=== PATIENT | female | born 1930 | race Caucasian/White ===

== ENCOUNTER 2016-08-08 15:01 | Inpatient (IN) | payer OTHER, MEDICARE ==
--- NOTE | 2016-08-08 15:59 | PDOC ---
History of Present Illness - General History Source: Patient Exam Limitations: No Limitations - History of Present Illness Initial Comments: 08/08/16 16:07 The patient is an 86-year-old female, with a significant past medical history of htn and hypercholesterolemia, who presents to the ED s/p mechanical fall today. The patient states that she was making tea and turned around and slipped. She denies any LOC or head trauma. The patient is now experiencing bilateral thigh pain. Pt had a previous fall about 3-4 months ago and was admitted for a week and sent for physical therapy. The patient denies having any other symptoms. <Liberty Pierce - Last Filed: 08/08/16 17:20> - General History Source: Patient, Family, Old Records Exam Limitations: No Limitations <Soila Domingo - Last Filed: 08/08/16 19:08> - General Chief Complaint: Injury Stated Complaint: FALL Time Seen by Provider: 08/08/16 15:24 Past History <Liberty Pierce - Last Filed: 08/08/16 17:20> - Past Medical History Anemia: No Asthma: No Cancer: No Cardiac Disorders: No CVA: No COPD: No CHF: No Dementia: No Diabetes: No GI Disorders: No Disorders: No HTN: Yes Hypercholesterolemia: Yes Liver Disease: No Seizures: No Thyroid Disease: No - Surgical History Abdominal Surgery: Yes (Hernia Repair) Appendectomy: No Cardiac Surgery: No Cholecystectomy: Yes Lung Surgery: No Neurologic Surgery: No Orthopedic Surgery: No - Psycho/Social/Smoking Cessation Hx Anxiety: No Suicidal Ideation: No Smoking Status: No Smoking History: Unknown if ever smoked Have you smoked in the past 12 months: No Number of Cigarettes Smoked Daily: 0 Hx Alcohol Use: No Drug/Substance Use Hx: No Substance Use Type: None Hx Substance Use Treatment: No <Soila Domingo - Last Filed: 08/08/16 19:08> - Past Medical History Allergies/Adverse Reactions: Allergies Allergy/AdvReac Type Severity Reaction Status Date / Time irbesartan [From Avapro] Allergy Intermediate Swelling Verified 08/08/16 15:18 shellfish derived Allergy Mild Swelling Verified 08/08/16 15:18 Home Medications: Ambulatory Orders Amlodipine Besylate 5 mg PO DAILY #30 tablet 05/31/16 Aspirin [ASA -] 81 mg PO DAILY #30 tab.chew 05/31/16 Folic Acid - 1 mg PO DAILY #0 05/31/16 Levofloxacin [Levaquin -] 250 mg PO DAILY #3 tablet 05/31/16 Valsartan [Diovan] 80 mg PO DAILY #30 tablet 05/31/16 Review of Systems - Review of Systems Able to Perform ROS?: Yes Comments:: 08/08/16 16:07 CONSTITUTIONAL: Absent: fever, no chills, no fatigue EYES: Absent: visual changes ENT: Absent: ear pain, no sore throat CARDIOVASCULAR: Absent: chest pain, no palpitations RESPIRATORY: Absent: cough, no SOB GI: Absent: abdominal pain, no nausea, no vomiting, no constipation, no diarrhea GENITOURINARY: Absent: dysuria, no frequency, no hematuria MUSKULOSKELETAL: Absent: back pain, no arthralgia. (+)bilateral thigh pain. Absent: rash NEURO: Absent: headache <Liberty Pierce - Last Filed: 08/08/16 17:20> *Physical Exam - Vital Signs Last Vital Signs Temp Pulse Resp BP Pulse Ox 98.6 F 68 20 130/70 98 08/08/16 15:18 08/08/16 15:18 08/08/16 15:18 08/08/16 15:18 08/08/16 15:18 - Physical Exam Comments: 08/08/16 16:09 GENERAL: Well-appearing, well-nourished. No apparent distress. HEENT: Normocephalic, atraumatic. PERRL, EOM intact. CARDIOVASCULAR: Normal S1, S2. Regular rate and rhythm. PULMONARY: Clear to auscultation bilaterally. ABDOMEN: Soft, non-distended, non-tender. EXTREMITIES: (+) Left leg looks externally rotated and shortened with swelling of the entire extremity. Limited range of motion of the left leg at the hip. SKIN: Warm, dry. No rash NEUROLOGICAL: No focal neurological deficits. 2+ distal pulses, sensation is intact. <Liberty Pierce - Last Filed: 08/08/16 17:20> - Vital Signs Last Vital Signs Temp Pulse Resp BP Pulse Ox 98.6 F 68 20 130/70 98 08/08/16 15:18 08/08/16 15:18 08/08/16 15:18 08/08/16 15:18 08/08/16 15:18 <Soila Domingo - Last Filed: 08/08/16 19:08> ED Treatment Course - LABORATORY CBC & Chemistry Diagram: 08/08/16 16:15 08/08/16 16:15 <Liberty Pierce - Last Filed: 08/08/16 17:20> - LABORATORY CBC & Chemistry Diagram: 08/08/16 16:15 08/08/16 16:15 <Soila Domingo - Last Filed: 08/08/16 19:08> Medical Decision Making - Medical Decision Making 08/08/16 15:57 86-year-old female with history of hypertension who presents to the emergency department with left hip pain status post mechanical fall at home today. Differential diagnosis includes but is not limited to: Left hip fracture, contusion, pelvic fracture. Plan: 1. Plain films of pelvis and hip and femur 2. Preop labs 3. Pain management 4. Orthopedics consult and admission 5. Observe and reevaluate <Soila Domingo - Last Filed: 08/08/16 19:08> *DC/Admit/Observation/Transfer <Liberty Pierce - Last Filed: 08/08/16 17:20> - Discharge Dispostion Admit: Yes - Attestations Physician Attestion: 08/08/16 15:57 I, Dr. Soila Domingo, attest that the scribes documentation that appears above has been prepared under my direction and personally reviewed by me in its entirety. I confirmed that the note above accurately reflects all work, treatment, procedures, and medical decision-making performed by me. <Soila Domingo - Last Filed: 08/08/16 19:08> Diagnosis at time of Disposition: Hip fracture, left - Discharge Dispostion Condition at time of disposition: Stable - Referrals Referrals: Ivelisse Cr [Primary Care Provider] -
[2016-08-08] MEDS ORDERED: morphine CARPU-JECT 4 MG/1 ML DISP.SYRIN IVPUSH ONE ×2 (16:00→18:40)
[2016-08-08] MEDS ORDERED: morphine CARPU-JECT 2 MG/1 ML DISP.SYRIN ONE ×2 (16:09→18:45)
[2016-08-08 16:25] LABS: BASOPHIL 0.6 % (0-2.0); EOSINOPHIL 1.7 % (0-4.5); MCH 30.8 pg (25.7-33.7); MCHC 32.3 g/dl (32.0-36.0); MEAN CELL VOLUME 95.4 fl (80-96); MEAN PLT VOLUME 7.4 fl (7.5-11.1); NEUTROPHILS 73.8 % (42.8-82.8); PLATELET COUNT 299 K/MM3 (134-434); RDW 13.6 % (11.6-15.6); WHITE BLOOD COUNT 8.7 K/mm3 (4.0-10.0)
[2016-08-08 16:46] LABS: INR 1.02 (0.82-1.09); PROTHROMBIN TIME (PATIENT) 11.2 SEC (9.98-11.88)
[2016-08-08 16:49] LABS: ACTIVATED PTT 25.9 SECONDS (26.9-34.4); ALBUMIN 3.1 g/dl (3.4-5.0); ANION GAP 9 (8-16); BILIRUBIN,TOTAL 0.2 mg/dL (0.2-1.0); CALCIUM 8.8 mg/dL (8.5-10.1); CO2 22 mmol/L (21-32); CREATININE 0.9 mg/dL (0.55-1.02); GLUCOSE,RANDOM 104 mg/dL (74-106); SGOT/AST 21 U/L (15-37); SGPT/ALT 14 U/L (12-78); TOT PROT 5.7 g/dl (6.4-8.2)
[2016-08-08 16:51] LABS: ALK PHOS 54 U/L (45-117); TROPONIN I < 0.02 ng/ml (0.00-0.05)
[2016-08-08 16:53] LABS: URINE APPEARANCE CLEAR; URINE BILIRUBIN NEGATIVE (NEGATIVE); URINE COLOR STRAW; URINE GLUCOSE (UA) NEGATIVE (NEGATIVE); URINE KETONE NEGATIVE (NEGATIVE); URINE LEUK ESTERASE NEGATIVE (NEGATIVE); URINE NITRITE NEGATIVE (NEGATIVE); URINE PROTEIN NEGATIVE (NEGATIVE); URINE UROBILINOGEN NEGATIVE E.U./dl (0.2-1.0)
[2016-08-08 17:08] LABS: URINE BLOOD 2+ (NEGATIVE)
[2016-08-08] MEDS ORDERED: morphine CARPU-JECT 2 MG/1 ML DISP.SYRIN IVPUSH ONE (18:41)
[2016-08-08] MEDS ORDERED: SODIUM CHLORIDE 1,000 ML IV SCH (20:30)
[2016-08-08] MEDS ORDERED: morphine CARPU-JECT 2 MG/1 ML DISP.SYRIN IVPUSH PRN (20:31)
[2016-08-08] MEDS ORDERED: DEXTROSE 5%-NORMAL SALINE 1,000 ML IV SCH (21:00)
--- NOTE | 2016-08-08 21:18 | MSN ---
Admitting History and Physical - Admission Chief Complaint: Left thigh pain after a fall History of Present Illness: Patient with history of HTN, and HLD presented to the ED after a fall in her house. She slipped while cooking and fell on her back and hands, she was able to get a neighbor to come and help her get up and call the ambulance. She did not have any pain after her fall but upon arrival at the ED, she began to feel some pain in her left hip. She did not lose consciousness during the fall, nor did she hit her head. She denies any pain other than her hip, she has no CP, fever, headache, NVD, no dysuria, constp., or SOB. She never used tobacco or alcohol. History Source: Patient Limitations to Obtaining History: Poor Historian - Past Medical History Cardiovascular: Yes: HTN, Hyperlipdemia - Past Surgical History Past Surgical History: Yes: Cholecystectomy, Tonsillectomy - Smoking History Smoking history: Unknown if ever smoked Have you smoked in the past 12 months: No Aproximately how many cigarettes per day: 0 - Alcohol/Substance Use Hx Alcohol Use: No - Social History Usual Living Arrangement: Yes: Alone ADL: Independent Occupation: retired workers compensation legal secretary Other Social History: Father passed from lung cancer at 64 and mother passed from old age at 94 Home Medications - Allergies Allergies/Adverse Reactions: Allergies Allergy/AdvReac Type Severity Reaction Status Date / Time irbesartan [From Avapro] Allergy Intermediate Swelling Verified 08/08/16 15:18 shellfish derived Allergy Mild Swelling Verified 08/08/16 15:18 - Home Medications Home Medications: Ambulatory Orders Amlodipine Besylate 5 mg PO DAILY #30 tablet 05/31/16 Aspirin [ASA -] 81 mg PO DAILY #30 tab.chew 05/31/16 Folic Acid - 1 mg PO DAILY #0 05/31/16 Levofloxacin [Levaquin -] 250 mg PO DAILY #3 tablet 05/31/16 Valsartan [Diovan] 80 mg PO DAILY #30 tablet 05/31/16 Family Disease History - Family Disease History Family Disease History: Heart Disease: Mother, CA: Father Review of Systems - Review of Systems Constitutional: reports: No Symptoms. denies: Chills, Fever, Loss of Appetite, Malaise, Night Sweats Eyes: reports: No Symptoms. denies: Blurred Vision HENT: reports: No Symptoms Neck: reports: No Symptoms Cardiovascular: reports: No Symptoms. denies: Chest Pain, Shortness of Breath Respiratory: reports: No Symptoms Gastrointestinal: reports: No Symptoms Genitourinary: reports: No Symptoms. denies: Burning, Dysuria, Flank Pain Musculoskeletal: reports: Decreased ROM (lower left hip), Extremity Pain (lower left hip), Joint Pain (lower left hip), Joint Swelling (lower left hip), Other ( Hip Pain) Neurological: reports: No Symptoms. denies: Change in LOC, Change in Speech, Confusion, Dizziness Endocrine: reports: No Symptoms. denies: Excessive Sweating, Intolerance to Cold, Intolerance to Heat, Unexplained Weight Gain, Unexplained Weight Loss Hematology/Lymphatic: reports: No Symptoms. denies: Easily Bruised Psychiatric: reports: No Symptoms Pain Intensity: 10 (pain is constant) Physical Examination Vital Signs: Vital Signs Temperature 98.6 F 08/08/16 15:18 Pulse Rate 68 08/08/16 15:18 Respiratory Rate 20 08/08/16 15:18 Blood Pressure 130/70 08/08/16 15:18 O2 Sat by Pulse Oximetry (%) 98 08/08/16 15:18 Constitutional: Yes: Well Nourished, No Distress, Calm, Moderate Distress. No: Anxious, Ashen, Cachectic Eyes: Yes: WNL, Conjunctiva Clear, EOM Intact, PERRL. No: Cataracts, Diplopia, Sclera Icterus, Tearing HENT: Yes: WNL, Atraumatic, Normocephalic. No: Drooling, Epistaxis, Hoarseness , Nasal Congestion Neck: Yes: WNL, Supple, Trachea Midline Cardiovascular: Yes: WNL, Regular Rate and Rhythm, S1, S2. No: JVD, Gallop, Murmur, Rub, S4 Respiratory: Yes: WNL, Regular, CTA Bilaterally. No: Mechanically Ventilated, On BiPap, On Nasal O2, On Venti-Mask, Orthopnea, Poor Air Entry, Rales, Rhonchi , SOB, SOB on Exertion Gastrointestinal: Yes: WNL, Normal Bowel Sounds, Soft. No: Abdomen, Obese, Ascites, Distention, Hematemesis, Hemorrhoids, Hepatomegaly, Hyperactive Bowel Sounds, Hypoactive Bowel Sounds, Melena Renal/: Yes: WNL Extremities: Yes: Shortened (Left lower ext., externally rotated and pain) Edema: No Edema: LLE: Trace (nonpitting) Peripheral Pulses WNL: Yes Peripheral Pulses: Left Radial: 2+, Right Radial: 2+, Left Doralis Pedis: 2+, Right Dorsalis Pedis: 2+ Neurological: Yes: WNL, Alert, Oriented ...Motor Strength: LLE (Weakness) Psychiatric: Yes: WNL, Alert, Oriented Assessment/Plan 86 YO F w/ hx of HTn and HLD who preseted to the ED after a fall and left thigh pain. based on pelvis xray patient is diagnosed with a left femoral fracture at the femoral neck femoral fracture/hip pain -Xray of pelvis-Hip frac visualized waiting for radiology report -CT pelvis -1mg morphine q6h HTN -Cont. medications Anemia/elctrolytes -Hg-9.0 hct 27.8 -cross and type -CBC q8h -Fluids D5w NS 75ml/hr -BMP at 6am -monitor Mg/P/K/Trop Dvt Px -Heparin Subq q8h GI prx -Protonix drip Surg. Clearance -Patient cleared for surgery with moderate to high risk due to HTN and HLD. Patient currently has a slight anemia that is being monitored.
--- NOTE | 2016-08-08 21:20 | HP ---
CHIEF COMPLAINT: Hip pain PCP: HISTORY OF PRESENT ILLNESS: The pt is a 86 year old female with a significant PMH of HTN, HDL, s/p fall in May 2016, presents with the pain in her left hip. The pt slipped over when preparing tea at home. She fell on her back with extended arms. Afterwards she called a neighbour for help. She denies LOC, feeling dizzy, lightheaded before or after the accident. She denies chest pain, SOB, cough, dysuria, urgency, frequency, N/V, diarrhea, constipation, fever, chills. ER course was notable for: (1)Hip, femur X ray (2)Chest X ray (3)Troponins neg, CK-MG elevated PAST MEDICAL HISTORY: HTN, HDL, s/p fall in May 2016 PAST SURGICAL HISTORY: Tonsillectomy Cholecystectomy in 2013 Social History: Smoking:No Alcohol:No Drugs: No Family History: Father: lung cancer Mother: bc of old age Allergies irbesartan [From Avapro] Allergy (Intermediate, Verified 08/08/16 15:18) Swelling shellfish derived Allergy (Mild, Verified 08/08/16 15:18) Swelling HOME MEDICATIONS: Medication Instructions Recorded Amlodipine Besylate 5 mg PO DAILY #30 tablet 05/31/16 Aspirin [ASA -] 81 mg PO DAILY #30 tab.chew 05/31/16 Folic Acid - 1 mg PO DAILY #0 05/31/16 Levofloxacin [Levaquin -] 250 mg PO DAILY #3 tablet 05/31/16 Valsartan [Diovan] 80 mg PO DAILY #30 tablet 05/31/16 REVIEW OF SYSTEMS CONSTITUTIONAL: Absent: fever, chills, diaphoresis, generalized weakness, malaise, loss of appetite, weight change HEENT: Absent: rhinorrhea, nasal congestion, throat pain, throat swelling, difficulty swallowing, mouth swelling, ear pain, eye pain, visual changes CARDIOVASCULAR: Absent: chest pain, syncope, palpitations, irregular heart rate, lightheadedness , peripheral edema RESPIRATORY: Absent: cough, shortness of breath, dyspnea with exertion, orthopnea, wheezing, stridor, hemoptysis GASTROINTESTINAL: Absent: abdominal pain, abdominal distension, nausea, vomiting, diarrhea, constipation, melena, hematochezia GENITOURINARY: Absent: dysuria, frequency, urgency, hesitancy, hematuria, flank pain, genital pain MUSCULOSKELETAL: left hip pain, left leg swelling Absent: myalgia,back pain, neck pain SKIN: Absent: rash, itching, pallor HEMATOLOGIC/IMMUNOLOGIC: Absent: easy bleeding, easy bruising, lymphadenopathy, frequent infections ENDOCRINE: Absent: unexplained weight gain, unexplained weight loss, heat intolerance, cold intolerance NEUROLOGIC: Absent: headache, focal weakness or paresthesias, dizziness, unsteady gait, seizure, mental status changes, bladder or bowel incontinence PSYCHIATRIC: Absent: anxiety, depression, suicidal or homicidal ideation, hallucinations. PHYSICAL EXAMINATION GENERAL: Awake, alert, and fully oriented, in moderate distress, cachectic. HEAD: Normal with no signs of trauma. EYES: Pupils equal, round and reactive to light, extraocular movements intact, sclera anicteric, conjunctiva clear. No lid lag. EARS, NOSE, THROAT: Ears normal, nares patent, oropharynx clear without exudates. Moist mucous membranes. NECK: Normal range of motion, supple without lymphadenopathy, JVD, or masses. LUNGS: Breath sounds equal, clear to auscultation bilaterally. No wheezes, and no crackles. No accessory muscle use. HEART: Regular rate and rhythm, normal S1 and S2 without murmur, rub or gallop. ABDOMEN: Soft, nontender, not distended, normoactive bowel sounds, no guarding, no rebound, no masses. No hepatomegaly or splenomegaly. MUSCULOSKELETAL: Left LE externally rotated, swollen, no hematoma. Tenderness to palpation over left hip. RLE nl ROM, no tenderness. UPPER EXTREMITIES: 2+ pulses, warm, well-perfused. No cyanosis. No clubbing. Cap refill <2 seconds. No peripheral edema. LOWER EXTREMITIES: 2+ pulses, warm, well-perfused. No calf tenderness. Swelling in LLE. NEUROLOGICAL: Cranial nerves II-XII intact. Normal speech. Gait not observed. PSYCHIATRIC: Cooperative. Good eye contact. Appropriate mood and affect. SKIN: Warm, dry, normal turgor, no rashes or lesions noted. ASSESSMENT/PLAN: The pt is a 86 year old female with a significant PMH of HTN, HDL, s/p fall in May 2016, presents with the pain in her left hip. The pt slipped over when preparing tea at home. She fell on her back with extended arms. S/P mechanical fall: possible surgery -Pain control Morphine 1 mg Q6H PRN -orthopedic Surgery consultation ordered -NPO -monitor vital signs -Type and Screen -CBC and BMP in AM, check phosphorus, magnesium, potassium -troponins in AM -Oxygen Supplementation NC 2 L -NS at rate 75 ml/hr -D5NS at rate 75 ml/hr -last ECHO was done in May: normal LV, tricuspid regurgitation -Pepsid Dehydration: -BUN 45, Cr 0.9, -cont IVF Anemia: -Hgb 9.0, previously 9.8 in May -f/u CBC -Iron studies in AM -get consent for possible blood transfusion Elevated CK-MB -monitor -cont.IVF DVT Prophylaxis: -moderate risk -Heparin 5000 u SQ Q8H F/E/N NS, D5NS/No changes/NPO Admission to med surg Problem List - Problem (1) Hip fracture, left Code(s): S72.002A - FRACTURE OF UNSP PART OF NECK OF LEFT FEMUR, INIT (2) Accident due to mechanical fall without injury Code(s): W19.XXXA - UNSPECIFIED FALL, INITIAL ENCOUNTER Qualifiers: Encounter type: initial encounter Qualified Code(s): W19.XXXA - Unspecified fall, initial encounter Visit type - Emergency Visit Emergency Visit: Yes ED Registration Date: 08/08/16 Care time: The patient presented to the Emergency Department on the above date and was hospitalized for further evaluation of their emergent condition. - New Patient This patient is new to me today: Yes Date on this admission: 08/08/16 - Critical Care Critical Care patient: No
[2016-08-08] MEDS ORDERED: HEPARIN NA (PORCINE) 5,000 UNITS/ML 1ML VIAL SQ SCH (22:00)
--- NOTE | 2016-08-08 22:40 | PN ---
<Bee Guillen - Last Filed: 08/08/16 22:55> Teaching Attending Note ATTENDING PHYSICIAN STATEMENT I saw and evaluated the patient. I reviewed the resident's note and discussed the case with the resident. I agree with the resident's findings and plan as documented. SUBJECTIVE: The patient is a 86 yo female with a PMHx HTN, HLD who presents s/p fall with L sided hip pain. The patient has previous fall in May 2016. The patient now presents with a second episode of fall. She slipped over when making tea at home. She denies any LOC, head trauma, lightheadedness, chest pain, SOB, nausea , vomiting, headache, fever, or abdominal pain. OBJECTIVE: Physical Last Vital Signs Temp Pulse Resp BP Pulse Ox 98.6 F 68 20 130/70 98 08/08/16 15:18 08/08/16 15:18 08/08/16 15:18 08/08/16 15:18 08/08/16 15:18 GENERAL: Awake, alert, and fully oriented, in no acute distress HEENT: Atraumatic. PERRLA, EOMI. Moist mucosa. No JVD LUNGS: No distress, speaks full sentences, clear to auscultation bilaterally HEART: Regular rate and rhythm, normal S1 and S2, no murmurs, rubs or gallops, peripheral pulses normal and equal bilaterally. ABDOMEN: Soft, nontender, normoactive bowel sounds. No guarding, no rebound. No masses EXTREMITIES: +Bilteral pitting edema. + LLE shortened and rotated. +Visible swelling over thhe hip area with tenderness to palpation. + Pulses are present bilaterally. No clubbing or cyanosis. NEUROLOGICAL: Cranial nerves II through XII grossly intact. Normal speech, no focal sensorimotor deficits SKIN: Warm, Dry, normal turgor, no rashes or lesions noted. CBCD WBC 8.7 K/mm3 (4.0-10.0) 08/08/16 16:15 RBC 2.92 M/mm3 (3.60-5.2) L 08/08/16 16:15 Hgb 9.0 GM/dL (10.7-15.3) L 08/08/16 16:15 Hct 27.8 % (32.4-45.2) L 08/08/16 16:15 MCV 95.4 fl (80-96) 08/08/16 16:15 MCHC 32.3 g/dl (32.0-36.0) 08/08/16 16:15 RDW 13.6 % (11.6-15.6) 08/08/16 16:15 Plt Count 299 K/MM3 (134-434) D 08/08/16 16:15 MPV 7.4 fl (7.5-11.1) L 08/08/16 16:15 CMP Sodium 142 mmol/L (136-145) 08/08/16 16:15 Potassium 4.7 mmol/L (3.5-5.1) 08/08/16 16:15 Chloride 111 mmol/L (98-107) H 08/08/16 16:15 Carbon Dioxide 22 mmol/L (21-32) 08/08/16 16:15 Anion Gap 9 (8-16) 08/08/16 16:15 BUN 45 mg/dL (7-18) H D 08/08/16 16:15 Creatinine 0.9 mg/dL (0.55-1.02) D 08/08/16 16:15 Creat Clearance w eGFR 59.51 (>60) 08/08/16 16:15 Calcium 8.8 mg/dL (8.5-10.1) 08/08/16 16:15 Total Bilirubin 0.2 mg/dL (0.2-1.0) D 08/08/16 16:15 AST 21 U/L (15-37) D 08/08/16 16:15 ALT 14 U/L (12-78) D 08/08/16 16:15 Alkaline Phosphatase 54 U/L (45-117) D 08/08/16 16:15 Total Protein 5.7 g/dl (6.4-8.2) L 08/08/16 16:15 Albumin 3.1 g/dl (3.4-5.0) L 08/08/16 16:15 IMAGING: Official report to follow ASSESSMENT AND PLAN: Mechanical Fall -- L Femur intertrochanteric fracture -- Admit to Medical floor - Pain control -- NPO -- Dr. Leiva (ortho) consulted --Plan for surgery tomorrow -- Hold Heparin SQ dose as per Dr. Leiva -- Type and Cross -- EKG shows NSR -- Echo in May 2016 shows moderate tricuspid regurgitation, Normal LV and RV function -- CBC Q8 -- Lipid panel -- IVF while NPO -- No evidence of RABDO, CPK is normal Patient has hx of HTN, HLD, moderate tricuspid regurgitation as present patient is not complaining of active chest pain, SOB. EKG is NSR with negative troponin. Will clear patient for surgery with moderate- high risk. Anemia -- baseline hemoglobin is 9.8 in May 2016 -- Not bleeding actively -- Will repeat CBC in the AM -- Transfuse PRBCs as needed -- GI/DVT ppx Documentation prepared by Bee Guillen, acting as medical imaging tech for Ttaiana Atkins MD <Wilbert Simpson - Last Filed: 08/09/16 01:24> Teaching Attending Note Name of Resident: Claudine Lee ATTENDING PHYSICIAN STATEMENT I saw and evaluated the patient. I reviewed the resident's note and discussed the case with the resident. I agree with the resident's findings and plan as documented. SUBJECTIVE: OBJECTIVE: ASSESSMENT AND PLAN:
[2016-08-09 00:41] VITALS: BMI 21.7
[2016-08-09] MEDS ORDERED: DEXTROSE 5%-NORMAL SALINE 1,000 ML IV SCH ×2 (08:30→16:55)
[2016-08-09 08:31] LABS: MCH 32.1 pg (25.7-33.7); MCHC 33.4 g/dl (32.0-36.0); MEAN PLT VOLUME 7.6 fl (7.5-11.1); PLATELET COUNT 267 K/MM3 (134-434); RDW 13.5 % (11.6-15.6)
[2016-08-09 08:40] LABS: INR 1.08 (0.82-1.09); PROTHROMBIN TIME (PATIENT) 11.9 SEC (9.98-11.88)
[2016-08-09 09:02] LABS: CALCIUM 8.6 mg/dL (8.5-10.1)
--- NOTE | 2016-08-09 09:22 | CONSULT ---
Consult - text type - Consultation Consultation Note: FULL CONSULT DICTATED IMP: LEFT IT HIP FX PLAN: --> OR TOMORROW IF MEDICALLY CLEARED
--- NOTE | 2016-08-09 09:51 | CONS ---
DATE OF CONSULTATION: 08/09/2016 DATE OF DICTATION: 08/09/2016 Orthopedic consultation at [facility]. The patient is an 86-year-old female, status post fall injuring her left hip. The patient is unable to ambulate and complaining of a great deal of pain. On physical exam, the patient has a great deal of pain with any range of motion of the left hip. Hip is held in flexion and external rotation with full range of motion of the ankles and toes. However, is neurovascularly intact. X-rays show a left basicervical/intertrochanteric hip fracture of the left hip. IMPRESSION: Fracture, as described. PLAN: Risks, benefits and alternatives discussed with the patient. Patient will need consent from a family member, as the patient is slightly confused. Patient will need optimization of a medical doctor with the patient for operative intervention tomorrow for a left gamma nailing. WALTER RUSH M.D. MELVA/[id number]
[2016-08-09] MEDS ORDERED: ASPIRIN 81 MG CHEWABLE TABLETS PO SCH (10:00)
[2016-08-09] MEDS ORDERED: VALSARTAN 80 MG TABLET (UD) PO SCH (10:00)
[2016-08-09] MEDS ORDERED: amLODIPine BESYLATE 5 MG TABLET (FP) PO SCH (10:00)
[2016-08-09 10:07] LABS: BASOPHIL 0.3 % (0-2.0); EOSINOPHIL 0.2 % (0-4.5); NEUTROPHILS 79.9 % (42.8-82.8)
[2016-08-09] MEDS: PANTOPRAZOLE SODIUM 100 ML IVPB SCH (10:50)
[2016-08-09] MEDS: DOCUSATE SODIUM 100 MG CAPSULE (FP) PO SCH (10:56)
[2016-08-09] MEDS: FOLIC ACID 1 MG TABLET (FP) PO SCH (10:56)
[2016-08-09 13:54] LABS: BASOPHIL 0.2 % (0-2.0); EOSINOPHIL 0.1 % (0-4.5); MCH 31.6 pg (25.7-33.7); MCHC 32.8 g/dl (32.0-36.0); MEAN CELL VOLUME 96.2 fl (80-96); MEAN PLT VOLUME 7.1 fl (7.5-11.1); NEUTROPHILS 80.4 % (42.8-82.8); PLATELET COUNT 237 K/MM3 (134-434); RDW 13.4 % (11.6-15.6); WHITE BLOOD COUNT 11.1 K/mm3 (4.0-10.0)
[2016-08-09] MEDS ORDERED: ACETAMINOPHEN 325 MG TABLET (FP) PO ONE (14:08)
--- NOTE | 2016-08-09 15:49 | PN ---
Physical Exam: SUBJECTIVE: Patient seen and examined, patient states that she usually walks with walker but yesterday she was in kitchen and slipped. states that she has pain in left leg. denies hitting her head. denies chest pain, sob, nausea, vomiting, light headedness OBJECTIVE: Vital Signs Period Temp Pulse Resp BP Sys/Weiss Pulse Ox Last 24 Hr 98 F-98.9 F 69-79 18-19 103-135/43-58 98 GENERAL: The patient is awake, alert, and fully oriented, in no acute distress. HEAD: Normal with no signs of trauma. EYES: PERRL, extraocular movements intact, sclera anicteric, conjunctiva clear. ENT: Ears normal, nares patent, oropharynx clear without exudates, LUNGS: Breath sounds equal, clear to auscultation bilaterally, no wheezes, no crackles, HEART: s1s2 normal ABDOMEN: Soft, nontender, nondistended, normoactive bowel sounds, no guarding, EXTREMITIES: Left LE externally rotated, swollen, no hematoma. Tenderness to palpation over left hip PSYCH: Normal mood, normal affect. SKIN: Warm, dry, normal turgor, no rashes or lesions noted Laboratory Results - last 24 hr 08/09/16 08/09/16 08/09/16 06:40 06:40 06:40 WBC 11.0 H Corrected WBC (auto) RBC 2.29 L D Hgb 7.3 L D Hct 22.0 L D MCV 96.0 MCHC 33.4 RDW 13.5 Plt Count 267 MPV 7.6 Add Manual Diff Neutrophils % 79.9 Lymphocytes % 12.4 D Monocytes % 7.2 Eosinophils % 0.2 D Basophils % 0.3 Band Neutrophils Metamyelocytes Myelocytes Promyelocytes Nucleated RBCs Differential Comment Hypersegmented Neuts Plasmacytoid Lymphs Reactive Lymphocytes Blast Cells Plasma Cells Smudge Cells Other Cell Type Toxic Granulation Dohle Bodies Santi Rods Platelet Estimate Platelet Comment Normal RBC Morphology RBC Morphology Polychromasia Hypochromic-Microcytic Poikilocytosis Basophilic Stippling Anisocytosis Microcytosis Macrocytosis Spherocytes Siderocytes Sickle Cells Target Cells Tear Drop Cells Ovalocytes Stomatocytes Helmet Cells Fritz-Sabana Bodies Elbe Rings Daria Cells Acanthocytes (Spur) Rouleaux Fragmented RBCs Schistocytes Morphology Comment INR 1.08 PTT (Actin FS) Sodium 145 Potassium 4.2 Chloride 113 H Carbon Dioxide 23 Anion Gap 9 BUN 34 H D Creatinine 1.0 Random Glucose 114 H Calcium 8.6 Phosphorus 3.0 D Magnesium 2.0 Ferritin Troponin I 08/09/16 08/09/16 08/09/16 06:40 06:40 06:40 WBC Corrected WBC (auto) RBC Hgb Hct MCV MCHC RDW Plt Count MPV Add Manual Diff Neutrophils % Lymphocytes % Monocytes % Eosinophils % Basophils % Band Neutrophils Metamyelocytes Myelocytes Promyelocytes Nucleated RBCs Differential Comment Hypersegmented Neuts Plasmacytoid Lymphs Reactive Lymphocytes Blast Cells Plasma Cells Smudge Cells Other Cell Type Toxic Granulation Dohle Bodies Santi Rods Platelet Estimate Platelet Comment Normal RBC Morphology RBC Morphology Polychromasia Hypochromic-Microcytic Poikilocytosis Basophilic Stippling Anisocytosis Microcytosis Macrocytosis Spherocytes Siderocytes Sickle Cells Target Cells Tear Drop Cells Ovalocytes Stomatocytes Helmet Cells Fritz-Sabana Bodies Elbe Rings [place] Cells Acanthocytes (Spur) Rouleaux Fragmented RBCs Schistocytes Morphology Comment INR PTT (Actin FS) 24.4 L Sodium Potassium Chloride Carbon Dioxide Anion Gap BUN Creatinine Random Glucose Calcium Phosphorus Magnesium Ferritin 88.972 Troponin I < 0.02 08/09/16 08/09/16 06:40 13:45 WBC Cancelled 11.1 H Corrected WBC (auto) Cancelled RBC Cancelled 2.12 L Hgb Cancelled 6.7 L* Hct Cancelled 20.4 L MCV Cancelled 96.2 H MCHC Cancelled 32.8 RDW Cancelled 13.4 Plt Count Cancelled 237 MPV Cancelled 7.1 L Add Manual Diff Cancelled Neutrophils % Cancelled 80.4 Lymphocytes % Cancelled 11.6 Monocytes % Cancelled 7.7 Eosinophils % Cancelled 0.1 Basophils % Cancelled 0.2 Band Neutrophils Cancelled Metamyelocytes Cancelled Myelocytes Cancelled Promyelocytes Cancelled Nucleated RBCs Cancelled Differential Comment Cancelled Hypersegmented Neuts Cancelled Plasmacytoid Lymphs Cancelled Reactive Lymphocytes Cancelled Blast Cells Cancelled Plasma Cells Cancelled Smudge Cells Cancelled Other Cell Type Cancelled Toxic Granulation Cancelled Dohle Bodies Cancelled Santi Rods Cancelled Platelet Estimate Cancelled Platelet Comment Cancelled Normal RBC Morphology Cancelled RBC Morphology Cancelled Polychromasia Cancelled Hypochromic-Microcytic Cancelled Poikilocytosis Cancelled Basophilic Stippling Cancelled Anisocytosis Cancelled Microcytosis Cancelled Macrocytosis Cancelled Spherocytes Cancelled Siderocytes Cancelled Sickle Cells Cancelled Target Cells Cancelled Tear Drop Cells Cancelled Ovalocytes Cancelled Stomatocytes Cancelled Helmet Cells Cancelled Fritz-Sabana Bodies Cancelled Elbe Rings Cancelled Daria Cells Cancelled Acanthocytes (Spur) Cancelled Rouleaux Cancelled Fragmented RBCs Cancelled Schistocytes Cancelled Morphology Comment Cancelled INR PTT (Actin FS) Sodium Potassium Chloride Carbon Dioxide Anion Gap BUN Creatinine Random Glucose Calcium Phosphorus Magnesium Ferritin Troponin I Active Medications Generic Name Dose Route Start Last Admin Trade Name Freq PRN Reason Stop Dose Admin Amlodipine Besylate 5 mg 08/09/16 10:00 08/09/16 10:56 Norvasc - PO 5 mg DAILY WYATT Administration Aspirin 81 mg 08/09/16 10:00 08/09/16 10:56 Asa - PO 81 mg DAILY WYATT Administration Docusate Sodium 100 mg 08/09/16 10:00 08/09/16 10:56 Colace - PO 100 mg DAILY WYATT Administration Folic Acid 1 mg 08/09/16 10:00 08/09/16 10:56 Folic Acid - PO 1 mg DAILY WYATT Administration Furosemide 20 mg 08/09/16 18:00 Lasix Injection - IVPB 08/09/16 18:01 ONCE@1800 ONE Pantoprazole Sodium 100 mls @ 200 mls/hr 08/09/16 10:00 08/09/16 10:50 Protonix 40mg Ivpb (Pre-Docked) IVPB 200 mls/hr DAILY WYATT Administration Dextrose/Sodium Chloride 1,000 mls @ 75 mls/hr 08/09/16 08:30 08/09/16 10:56 D5-Ns - IV 75 mls/hr ASDIR WYATT Administration Morphine Sulfate 1 mg 08/08/16 20:31 08/09/16 01:18 Morphine Injection - IVPUSH 1 mg Q6H PRN Administration PAIN Valsartan 80 mg 08/09/16 10:00 08/09/16 10:56 Diovan - PO 80 mg DAILY WYATT Administration last ECHO was done in May: normal LV, tricuspid regurgitation ASSESSMENT/PLAN: The pt is a 86 year old female with a significant PMH of HTN, HDL, came to hospital with a complain of fall and was diagnosed to have left femur neck fracture left femur neck fracture s/p fall -Pain control Morphine 1 mg Q6H PRN - npo after mid night - patient is posted for surgery for tomorrow - hb dropped to 6.7, will give her 2 units of blood, give slowly each unit over 3 hour and give lasix 20mg -Oxygen Supplementation NC 2 L - dns 75 ml/hr - ortho consult appreciated, Dr mccray informed regarding fall in haemoglobin, advised to give 2 pc, will go for surgery tomorrow, - patient is undergoing elective intermediate risk surgery, METS <3. Patient has hisory of htn and is on medication, echo in May showed tr, normal lv. on examination no crepts, s1s2 normal, Patient has intermediate risk for surgery. Anemia: Hb drop to 6.7 will give her 2 units of blood, give slowly, watch for fluid over load will give her 20mg lasix to prevent fluid overload HTN on valsartan 80mg daily amlodipine 5mg daily DVT Prophylaxis: avoid ac, Hb dropped to 6.7 F/E/N fluid d5ns at 42 ml/hr electrolyte: follow in am nutrition ; regular diet, npo after mid night Admission to med surg Visit type - Emergency Visit Emergency Visit: Yes ED Registration Date: 08/08/16 Care time: The patient presented to the Emergency Department on the above date and was hospitalized for further evaluation of their emergent condition. - New Patient This patient is new to me today: Yes Date on this admission: 08/09/16 - Critical Care Critical Care patient: No
--- NOTE | 2016-08-09 17:00 | EKG ---
Test Reason : Blood Pressure : / mmHG Vent. Rate : 063 BPM Atrial Rate : 063 BPM P-R Int : 172 ms QRS Dur : 086 ms QT Int : 384 ms P-R-T Axes : 057 -21 058 degrees QTc Int : 392 ms NORMAL SINUS RHYTHM NORMAL ECG WHEN COMPARED WITH ECG OF 11-JUL-2012 17:12, NO SIGNIFICANT CHANGE WAS FOUND Confirmed by DIONI MARLOW MD ([id number]) on 08/09/2016 5:00:03 PM Referred By: Overread By: DIONI MARLOW MD
--- NOTE | 2016-08-09 17:06 | PN ---
Teaching Attending Note Name of Resident: Nickolas Lai ATTENDING PHYSICIAN STATEMENT I saw and evaluated the patient. I reviewed the resident's note and discussed the case with the resident. I agree with the resident's findings and plan as documented. SUBJECTIVE: no pain , no SOB , no CP or pAlpitations . denied any cardiac surgery or stents . tripped , n o LOC . OBJECTIVE: NAD , knows she is in hospital. does not know the year . knows her age dry MM . CV : RRR, no MRG Lungs : CTAB no JVD Ext: TTP and edema over L hip, raquel lateral aspect . DP 2+ b/l. LLE shorter and externally rotated. warm skin over feet , able to move ankle and toes ASSESSMENT AND PLAN: 86 y/o lady with h/o HTN, HL , recent admission with rhabdo , who presented after a mechanical fall. no head trauma 1- mechanical fall with resultant L intertrochanteric Fx . -cont pain meds. -need surgical procedure . -pre-OP risk stratification : this not an emergent sx , but needed for pt to be functional again. the surgery itself is an intermediate risk procedure . the patient has no signs fo ACS ,, heart failure , has no murmu , and no signs of fluid overload. last echo in our system in with nl EF and Mod -severe TR . her functional status is 1METS ( can bathe, feed self and toilet ) . given all that, the patient is a moderate risk for a this intermediate risk sx . no further cardiac w/u is neded before sx. - transfuse 2 units of RBC with lasix . - Hold asa before sx - monitor neuro vascular exam of LE - check CPK 2- H/o HTN : hold norvasc. BP in lower side place parameters on valsartan decrease rate of IVF 3- acute blood loss anemia . due to fx . as above 4- DVT px : avoid any heparin products now with her anemia . till after sx
[2016-08-09] MEDS ORDERED: FUROSEMIDE 40 MG/4 ML INJECTABLE VIAL IVPB ONE ×3 (18:00→20:00)
[2016-08-10] MEDS ORDERED: ACETAMINOPHEN 650 MG SUPP.RECT PR PRN (05:28)
[2016-08-10 06:06] LABS: SERUM IRON 20 ug/dL (27-139); TOTAL IRON BINDING CAPACITY 270 ug/dL (250-450); UIBC 250 ug/dL (118-369)
[2016-08-10 06:08] LABS: BASOPHIL 0.2 % (0-2.0); MCH 29.5 pg (25.7-33.7); MCHC 32.4 g/dl (32.0-36.0); MEAN CELL VOLUME 90.9 fl (80-96); MEAN PLT VOLUME 7.4 fl (7.5-11.1); NEUTROPHILS 85.6 % (42.8-82.8); PLATELET COUNT 214 K/MM3 (134-434); RDW 15.7 % (11.6-15.6); WHITE BLOOD COUNT 13.1 K/mm3 (4.0-10.0)
[2016-08-10 06:32] LABS: CALCIUM 8.2 mg/dL (8.5-10.1); CREATININE 1.2 mg/dL (0.55-1.02)
--- NOTE | 2016-08-10 09:19 | PN ---
Progress Note (short form) - Note Progress Note: Ortho Pt seen and examined- was scheduled for left IM gamma nail today-->cancelled due to pt being febrile/confused LLE- shortened and ER, decr rom, calf soft, nt nvi a/p OR tentatively for tomorrow pending clearance NPO after midnight hold AC after 10 pm d/w Dr. Leiva
[2016-08-10] MEDS: PANTOPRAZOLE SODIUM 100 ML IVPB SCH (10:00)
[2016-08-10] MEDS: DOCUSATE SODIUM 100 MG CAPSULE (FP) PO SCH (10:30)
[2016-08-10] MEDS: FOLIC ACID 1 MG TABLET (FP) PO SCH (10:30)
[2016-08-10] MEDS: VALSARTAN 80 MG TABLET (UD) PO SCH ×2 (10:31→13:24)
[2016-08-10] MEDS: DEXTROSE 5%-0.45% SALINE 1,000 ML IV SCH (10:31)
[2016-08-10] MEDS ORDERED: SCOPOLAMINE HYDROBROMIDE 1 PATCH PATCH.TD72 TD SCH (13:00)
--- NOTE | 2016-08-10 16:27 | PN ---
Physical Exam: SUBJECTIVE: Patient seen and examined, patient appeared confused OBJECTIVE: Vital Signs Period Temp Pulse Resp BP Sys/Weiss Pulse Ox Last 24 Hr 98.2 F-100.8 F 74-105 18-22 100-151/46-62 95-95 GENERAL: The patient is awake oriented to name, her date, unable to tell place and year in no acute distress. HEAD: Normal with no signs of trauma. EYES: PERRL, extraocular movements intact, sclera anicteric, conjunctiva clear. ENT: Ears normal, nares patent, oropharynx clear without exudates, LUNGS: Breath sounds equal, clear to auscultation bilaterally, no wheezes, no crackles, HEART: s1s2 normal ABDOMEN: Soft, nontender, nondistended, normoactive bowel sounds, no guarding, EXTREMITIES: Left LE externally rotated, swollen thigh, swelling on leg decreased since yesterday. SKIN: Warm, dry, normal turgor, no rashes or lesions noted Laboratory Results - last 24 hr 08/09/16 08/10/16 08/10/16 06:40 05:28 05:28 WBC 13.1 H RBC 2.53 L Hgb 7.5 L D Hct 23.0 L MCV 90.9 MCHC 32.4 RDW 15.7 H D Plt Count 214 MPV 7.4 L Neutrophils % 85.6 H Lymphocytes % 7.3 L D Monocytes % 6.9 Eosinophils % 0.0 D Basophils % 0.2 Sodium 146 H Potassium 3.9 Chloride 114 H Carbon Dioxide 25 Anion Gap 7 L BUN 34 H Creatinine 1.2 H Random Glucose 123 H Calcium 8.2 L Iron 20 L TIBC 270 Iron Saturation 7 L Creatine Kinase CK-MB (CK-2) 08/10/16 05:28 WBC RBC Hgb Hct MCV MCHC RDW Plt Count MPV Neutrophils % Lymphocytes % Monocytes % Eosinophils % Basophils % Sodium Potassium Chloride Carbon Dioxide Anion Gap BUN Creatinine Random Glucose Calcium Iron TIBC Iron Saturation Creatine Kinase 688 H D CK-MB (CK-2) 5.232 H Active Medications Generic Name Dose Route Start Last Admin Trade Name Freq PRN Reason Stop Dose Admin Acetaminophen 650 mg 08/10/16 05:28 Tylenol Suppository - [place] Q4H PRN FEVER OR PAIN Docusate Sodium 100 mg 08/09/16 10:00 08/10/16 10:30 Colace - PO 100 mg DAILY WYATT Administration Folic Acid 1 mg 08/09/16 10:00 08/10/16 10:30 Folic Acid - PO 1 mg DAILY WYATT Administration Pantoprazole Sodium 100 mls @ 200 mls/hr 08/09/16 10:00 08/10/16 10:00 Protonix 40mg Ivpb (Pre-Docked) IVPB 200 mls/hr DAILY WYATT Administration Dextrose/Sodium Chloride 1,000 mls @ 83 mls/hr 08/10/16 09:00 08/10/16 10:31 D5-1/2ns - IV Not Given ASDIR WYATT Morphine Sulfate 1 mg 08/08/16 20:31 08/09/16 01:18 Morphine Injection - IVPUSH 1 mg Q6H PRN Administration PAIN Valsartan 80 mg 08/09/16 16:55 08/10/16 13:24 Diovan - PO Not Given DAILY WYATT ASSESSMENT/PLAN: The pt is a 86 year old female with a significant PMH of HTN, HDL, came to hospital with a complain of fall and was diagnosed to have left femur neck fracture left femur neck fracture s/p fall - patient was posted for surgery for today but it was cancelled as patient had a fever of 103, - blood culture, urine culture, urinalayis, sent, repeat cxr reviewed -Pain control Morphine 1 mg Q6H PRN - npo after mid night - patient is posted for surgery for tomorrow - recieved one unit of blood, Hb 7.5, getting second unit of blood -Oxygen Supplementation NC 2 L - ortho consult appreciated, - follow blood cultur, urine culture, Ua Anemia: hb 7.5 recieving second unit of blood hypernatremia fluid deficit 1.2 L started on IV D5-1/2 ns at 75 ml/hr follow Na AMS could be due to electrolyte imbalance, pain, infection CT head no actute pathology CXR no acupte pathology follow blood culture, urine culture, ua HTN on valsartan 80mg daily amlodipine 5mg daily DVT Prophylaxis: avoid ac, F/E/N fluid d51/2ns 75ml/hr electrolyte: follow in am, follow creatnine nutrition ; regular diet, npo after mid night Admission to med surg Visit type - Emergency Visit Emergency Visit: Yes ED Registration Date: 08/08/16 Care time: The patient presented to the Emergency Department on the above date and was hospitalized for further evaluation of their emergent condition. - New Patient This patient is new to me today: No - Critical Care Critical Care patient: No
--- NOTE | 2016-08-10 18:15 | PN ---
Teaching Attending Note Name of Resident: Nickolas Lai ATTENDING PHYSICIAN STATEMENT I saw and evaluated the patient. I reviewed the resident's note and discussed the case with the resident. I agree with the resident's findings and plan as documented. SUBJECTIVE: no fever or chills, no abd pain , no hip pain. no events over night except fro fever after transfusion OBJECTIVE: NAD , knows she is in hospital. does not know the year . knows her age . more awake today Dry MM . CV: RRR, no MRG Lungs : CTAB no JVD Ext: TTP and edema over L hip, raquel lateral aspect . DP 2+ b/l. LLE shorter and externally rotated. warm skin over feet , able to move ankle and toes . no bruise over L hip , nl temperature compared to other side . Stage 2 decub on sacrum . clean , no discharge ASSESSMENT AND PLAN: 86 y/o lady with h/o HTN, HL , recent admission with rhabdo , who presented after a mechanical fall. no head trauma 1- Mechanical fall with resultant L intertrochanteric Fx . - cont pain meds - transfuse another unit of RBC before sx. - no heparin products before sx due to her anemia - fever is likely due to the hip hematoma . there is no clear infectious source. infectious w/u in progress - Pre-OP risk stratification as per yesterday's note . 2- fever : likely form hematoma vs transfusion reaction . UA clean. decub is not infected. repeat cxray with no infiltrate . blood cx sent 3- AMS : likely metabolic encephalopathy /acute delirium due to pain, new environment and Fx . CT head Neg . monitor 4- H/o HTN : cont to hold norvasc cont valsartan with holding paramaters 5- hypernatremia due to dehydration . change and increase rate of IVF 6- acute blood loss anemia . due to fx . 2nd unit today 7- DVT px : avoid any heparin products now with her anemia.
[2016-08-10 20:44] LABS: URINE APPEARANCE CLOUDY; URINE BILIRUBIN NEGATIVE (NEGATIVE); URINE COLOR YELLOW; URINE GLUCOSE (UA) NEGATIVE (NEGATIVE); URINE KETONE NEGATIVE (NEGATIVE); URINE NITRITE NEGATIVE (NEGATIVE); URINE UROBILINOGEN NEGATIVE E.U./dl (0.2-1.0)
[2016-08-10 20:45] LABS: URINE BLOOD 3+ (NEGATIVE); URINE LEUK ESTERASE 3+ (NEGATIVE); URINE PROTEIN 1+ (NEGATIVE)
[2016-08-10 20:50] LABS: URIC ACID CRYSTALS MODERATE /hpf (NONE SEEN); URINE BACTERIA RARE /hpf (NONE SEEN); URINE MUCUS RARE; URINE RBC 50 /hpf (0-3); URINE WBC 97 /hpf (3-5)
[2016-08-11] MEDS: DEXTROSE 5%-0.45% SALINE 1,000 ML IV SCH ×3 (01:01→19:55)
[2016-08-11 07:39] LABS: BASOPHIL 0.1 % (0-2.0); EOSINOPHIL 0.1 % (0-4.5); MCH 30.1 pg (25.7-33.7); MCHC 33.7 g/dl (32.0-36.0); MEAN CELL VOLUME 89.3 fl (80-96); MEAN PLT VOLUME 7.6 fl (7.5-11.1); PLATELET COUNT 188 K/MM3 (134-434); RDW 16.1 % (11.6-15.6); WHITE BLOOD COUNT 11.7 K/mm3 (4.0-10.0)
[2016-08-11 08:24] LABS: CALCIUM 8.2 mg/dL (8.5-10.1)
[2016-08-11 08:25] LABS: CREATININE 0.8 mg/dL (0.55-1.02)
[2016-08-11] MEDS ORDERED: LIDOCAINE HCL/PF 2% SDV 5ML VIAL ONE (08:25)
[2016-08-11] MEDS ORDERED: PROPOFOL 20 ML ONE (08:25)
[2016-08-11] MEDS ORDERED: MIDAZOLAM HCL 2 MG/2 ML SINGLE DOSE VIAL ONE (08:26)
[2016-08-11] MEDS ORDERED: DESFLURANE GAS 240 ML BOTTLE IH ONE (08:48)
[2016-08-11] MEDS ORDERED: ePHEDrine SULFATE 50 MG/1 ML AMPULE ONE (09:00)
[2016-08-11] MEDS ORDERED: PHENYLEPHRINE HCL 10 MG/1 ML SINGLE DOSE VIAL ONE (09:04)
[2016-08-11] MEDS ORDERED: ceFAZolin SODIUM 1 GM VIAL IVPB ONE (09:09)
[2016-08-11] MEDS ORDERED: DEXAMETHASONE SOD PHOSPHATE 4 MG/1 ML VIAL ONE (09:14)
[2016-08-11] MEDS ORDERED: ceFAZolin SODIUM 1 GM VIAL ONE (09:14)
[2016-08-11] MEDS ORDERED: ONDANSETRON 4 MG/2 ML VIAL IVPUSH PRN ×2 (09:38→09:56)
--- NOTE | 2016-08-11 09:44 | OP ---
Operative Note - Note: Operative Date: 08/11/16 ([facility]) Pre-Operative Diagnosis: left IT fx Operation: left IM gamma nail Post-Operative Diagnosis: Same as Pre-op Surgeon: Leroy Leiva Stereo Equipment Repairer: Papo Kerns Anesthesiologist/PLOW HOLDER: Zahira Boyle Anesthesia: General Estimated Blood Loss (mls): 50 Operative Report Dictated: Yes
--- NOTE | 2016-08-11 09:48 | OP ---
DATE OF SURGERY: 08/11/2016 OPERATION: Left gamma nailing. PREOPERATIVE DIAGNOSIS: Left intertrochanteric hip fracture. POSTOPERATIVE DIAGNOSIS: Left intertrochanteric hip fracture. SURGEON: Leroy Leiva M.D. BROADCAST TECHNICIAN: FRANCINE Rodriguez ANESTHESIA: LMA CLOSURE: A short gamma nail with appropriate interlocks. No. 0 Vicryl for fascia, 2-0 for subcutaneous, 3-0 Monocryl subcuticular for skin, with skin glue. ESTIMATED BLOOD LOSS: Less than 100 mL. COMPLICATIONS: None. CONDITION: Recovery room in stable condition. DESCRIPTION OF OPERATIVE PROCEDURE: The patient was taken to the operating room. Spinal anesthesia was administered by the anesthesiologist. IV antibiotic prophylaxis was administered prior to the case. Patient was fastened to the fracture table with all prominences well padded. The left hip fracture was reduced and confirmation of excellent reduction from the AP and lateral planes was established using the image intensifier. A small 1-inch incision was made at the greater tip of the greater trochanter. Hemostasis was achieved with Bovie cautery. Sharp dissection was carried through the fascia. The K-wire was drilled from the tip of the greater trochanter past the fracture, into the intramedullary canal. Proper placement confirmed the AP and lateral planes by using the image intensifier. This was overreamed with a proximal reamer using the tissue protector to protect the soft tissue in the region. A short gamma nail was then malletted down into place into the intramedullary canal to the appropriate level. Using the outrigger and a small stab incision laterally, a Guidewire was drilled from one aspect of the femur through the femoral neck into the femoral head. Proper placement was confirmed of the AP and lateral planes using image intensifier. The wire was measured for length and was overreamed with a triple reamer and was screwed with the appropriate-length lag screw. Confirmation of appropriate depth was confirmed in the AP and lateral planes by using image intensifier. Traction was reduced. The compression device was used to compress the fracture and a screw was placed from above in a dynamic fashion. Again, using the outrigger and a small stab incision laterally, the distal locking screw was placed by drilling and an appropriate-sized screw. The outrigger was removed. Confirmation of excellent reduction was confirmed in the AP and lateral planes by using image intensifier with excellent position of the hardware. All incisions were irrigated with copious amounts of irrigation. The fascia was closed with 0 Vicryl, 2-0 for subcutaneous and 3-0 Monocryl subcuticular for skin. A sterile pressure dressing was applied. The patient was awakened from anesthesia and transferred to recovery room in stable condition. No complications. Estimated blood loss less than 100 mL. Leona [id number]
[2016-08-11] MEDS ORDERED: FUROSEMIDE 40 MG/4 ML INJECTABLE VIAL IVPB ONE (09:56)
[2016-08-11] MEDS: VALSARTAN 80 MG TABLET (UD) PO SCH (10:19)
[2016-08-11] MEDS: DOCUSATE SODIUM 100 MG CAPSULE (FP) PO SCH (10:19)
[2016-08-11] MEDS: PANTOPRAZOLE SODIUM 100 ML IVPB SCH (10:19)
[2016-08-11] MEDS: FOLIC ACID 1 MG TABLET (FP) PO SCH (10:19)
[2016-08-11] MEDS ORDERED: FUROSEMIDE 40 MG/4 ML INJECTABLE VIAL ONE (10:49)
[2016-08-11] MEDS ORDERED: FUROSEMIDE 40 MG/4 ML INJECTABLE VIAL IVPUSH ONE (10:50)
--- NOTE | 2016-08-11 14:17 | PN ---
Physical Exam: SUBJECTIVE: Patient seen and examined OBJECTIVE: Vital Signs Period Temp Pulse Resp BP Sys/Weiss Pulse Ox Last 24 Hr 98.2 F-99.9 F 70-88 16-20 125-165/50-95 95-100 GENERAL: The patient is awake oriented to name, her date, unable to tell place and year in no acute distress. HEAD: Normal with no signs of trauma. EYES: PERRL, extraocular movements intact, sclera anicteric, conjunctiva clear. ENT: Ears normal, nares patent, oropharynx clear without exudates, LUNGS: Breath sounds equal, clear to auscultation bilaterally, no wheezes, no crackles, HEART: s1s2 normal ABDOMEN: Soft, nontender, nondistended, normoactive bowel sounds, no guarding, EXTREMITIES: swollen thigh, swelling on leg decreased since yesterday. SKIN: Warm, dry, normal turgor, no rashes or lesions noted Laboratory Results - last 24 hr 08/10/16 08/11/16 08/11/16 20:00 06:00 06:00 WBC 11.7 H RBC 3.04 L D Hgb 9.1 L D Hct 27.1 L D MCV 89.3 MCHC 33.7 RDW 16.1 H Plt Count 188 MPV 7.6 Neutrophils % 86.0 H Lymphocytes % 7.8 L Monocytes % 6.0 Eosinophils % 0.1 D Basophils % 0.1 Sodium 145 Potassium 3.3 L Chloride 112 H Carbon Dioxide 24 Anion Gap 9 BUN 21 H D Creatinine 0.8 D Random Glucose 130 H Calcium 8.2 L Urine Color Yellow Urine Appearance Cloudy Urine pH 5.0 Ur Specific [place]ck[place] 1.019 Urine Protein 1+ H Urine Glucose (UA) Negative Urine Ketones Negative Urine Blood 3+ H Urine Nitrite Negative Urine Bilirubin Negative Urine Urobilinogen Negative Ur Leukocyte Esterase 3+ H Urine RBC 50 Urine WBC 97 Ur Epithelial Cells Rare Uric Acid Crystals Moderate Amorphous Urates Few Urine Bacteria Rare Urine Mucus Rare Active Medications Generic Name Dose Route Start Last Admin Trade Name Freq PRN Reason Stop Dose Admin Acetaminophen 650 mg 08/11/16 09:56 Tylenol Suppository - [place] Q4H PRN FEVER OR PAIN Docusate Sodium 100 mg 08/11/16 10:00 08/11/16 10:19 Colace - PO Not Given DAILY [facility] Enoxaparin Sodium 30 mg 08/12/16 09:00 Lovenox - SQ DAILY [facility] Fentanyl 25 mcg 08/11/16 09:56 Sublimaze Injection - IVPUSH 08/14/16 09:39 [id number] PRN PAIN Folic Acid 1 mg 08/11/16 10:00 08/11/16 10:19 Folic Acid - PO Not Given DAILY [facility] Cefazolin Sodium 50 mls @ 100 mls/hr 08/11/16 17:00 Ancef 1 Gm Premixed Ivpb - IVPB 08/12/16 01:29 Q8H WYATT Dextrose/Sodium Chloride 1,000 mls @ 83 mls/hr 08/11/16 09:56 D5-1/2ns - IV ASDIR [facility] Pantoprazole Sodium 100 mls @ 200 mls/hr 08/11/16 10:00 08/11/16 10:19 Protonix 40mg Ivpb (Pre-Docked) IVPB Not Given DAILY [facility] Ceftriaxone Sodium 50 mls @ 100 mls/hr 08/12/16 10:00 Rocephin 1gm Ivpb (Pre-Docked) IVPB DAILY [facility] Morphine Sulfate 1 mg 08/11/16 09:56 Morphine Injection - IVPUSH Q6H PRN PAIN Ondansetron HCl 4 mg 08/11/16 09:56 Zofran Injection IVPUSH 08/11/16 15:39 Q6H PRN NAUSEA AND/OR VOMITING Valsartan 80 mg 08/11/16 10:00 08/11/16 10:19 Diovan - PO Not Given DAILY [facility] ASSESSMENT/PLAN: The pt is a 86 year old female with a significant PMH of HTN, HDL, came to hospital with a complain of fall and was diagnosed to have left femur neck fracture left femur neck fracture s/p fall surgery done patient on iv antibiotics cefepime for 24 hours on ceftriaxone for uti start lovenox from tomorrow for pain on morphine, fentanyl follow cbc, bmp Anemia: hb 9.1 received 2 units of blood hypernatremia resolved na 145 on d5-1/2ns at 83ml/hr AMS could be due to uti CT head no actute pathology CXR no acupte pathology blood culture no growth ua shows uti u culture pending HTN on valsartan 80mg daily DVT Prophylaxis: start lovenox from tomorrow F/E/N fluid d51/2ns 83ml/hr electrolyte: follow in am, nutrition ; regular diet, Admission to med surg Visit type - Emergency Visit Emergency Visit: Yes ED Registration Date: 08/08/16 Care time: The patient presented to the Emergency Department on the above date and was hospitalized for further evaluation of their emergent condition. - New Patient This patient is new to me today: No - Critical Care Critical Care patient: No
[2016-08-11] MEDS ORDERED: CEFAZOLIN 1 GM/D5W 50 ML IVPB SCH (17:00)
[2016-08-11] MEDS: CEFAZOLIN 1 GM/D5W 50 ML IVPB SCH (17:30)
--- NOTE | 2016-08-11 18:13 | PN ---
Teaching Attending Note Name of Resident: Nickolas Lai ATTENDING PHYSICIAN STATEMENT I saw and evaluated the patient. I reviewed the resident's note and discussed the case with the resident. I agree with the resident's findings and plan as documented. SUBJECTIVE: no fever or chills, feels better , denies pain OBJECTIVE: NAD , knows she is in hospital. Dry MM . CV: RRR, no MRG Lungs : CTAB no JVD Ext: TTP and edema over L hip, raquel lateral aspect . DP 2+ b/l. warm skin over feet , able to move ankle and toes . no bruise over L hip , nl temperature compared to other side . surgical dressing on L hip Stage 2 decub on sacrum . clean , no discharge ASSESSMENT AND PLAN: 86 y/o lady with h/o HTN, HL , recent admission with rhabdo , who presented after a mechanical fall. no head trauma 1- Mechanical fall with resultant L intertrochanteric Fx . - s/p surgical fixation today - hilary-op abx cefazolin x 24 hr - . lovenox for DVT px . duration per Ortho 2- Fever : rsolved. could be due to Fx and hematoma , or due to UTI as UA shows pyuria in settign of willams. start CTX until urine cx is back. if NEg will dc 3- AMS : likely metabolic encephalopathy /acute delirium due to pain, new environment and Fx . CT head Neg . monitor 4- H/o HTN : cont valsartan if BP remains elevated tomorrow, can resume Norvasc 5- hypernatremia due to dehydration . resolved . replete K cont D51/2 NS today and change to low dose NS tomorrow 6- acute blood loss anemia . due to fx .s/p 2 units of RBC 7- DVT px : lovenox
[2016-08-12] MEDS: DEXTROSE 5%-0.45% SALINE 1,000 ML IV SCH ×2 (00:27→10:49)
[2016-08-12] MEDS: CEFAZOLIN 1 GM/D5W 50 ML IVPB SCH (00:27)
[2016-08-12 07:18] LABS: BASOPHIL 0.2 % (0-2.0); EOSINOPHIL 0.6 % (0-4.5); MCH 30.8 pg (25.7-33.7); MCHC 34.3 g/dl (32.0-36.0); MEAN CELL VOLUME 89.7 fl (80-96); MEAN PLT VOLUME 7.6 fl (7.5-11.1); NEUTROPHILS 80.2 % (42.8-82.8); PLATELET COUNT 183 K/MM3 (134-434); RDW 15.3 % (11.6-15.6); WHITE BLOOD COUNT 9.5 K/mm3 (4.0-10.0)
[2016-08-12 07:38] LABS: CALCIUM 7.5 mg/dL (8.5-10.1); CREATININE 0.9 mg/dL (0.55-1.02)
[2016-08-12] MEDS ORDERED: ENOXAPARIN NA (PORCINE) 30 MG/0.3 ML DISP.SYRIN SQ SCH (09:00)
[2016-08-12] MEDS: CEFTRIAXONE 50 ML IVPB SCH (10:42)
[2016-08-12] MEDS: FOLIC ACID 1 MG TABLET (FP) PO SCH (10:43)
[2016-08-12] MEDS: ENOXAPARIN NA (PORCINE) 30 MG/0.3 ML DISP.SYRIN SQ SCH (10:43)
[2016-08-12] MEDS: DOCUSATE SODIUM 100 MG CAPSULE (FP) PO SCH (10:43)
[2016-08-12] MEDS: VALSARTAN 80 MG TABLET (UD) PO SCH (10:43)
[2016-08-12] MEDS: PANTOPRAZOLE SODIUM 100 ML IVPB SCH (10:49)
[2016-08-12] MEDS: morphine CARPU-JECT 2 MG/1 ML DISP.SYRIN IVPUSH PRN ×2 (13:08→21:14)
--- NOTE | 2016-08-12 13:21 | PN ---
Physical Exam: SUBJECTIVE: Patient seen and examined Patient is c/o having left calf pain > right side, no shortness of breath OBJECTIVE: Vital Signs Temperature 98.8 F 08/12/16 05:30 Pulse Rate 74 08/12/16 05:30 Respiratory Rate 18 08/12/16 05:30 Blood Pressure 136/58 08/12/16 05:30 O2 Sat by Pulse Oximetry (%) 100 08/11/16 21:00 GENERAL: The patient is awake, alert, and fully oriented, in no acute distress. HEAD: Normal with no signs of trauma. EYES: PERRL, extraocular movements intact, sclera anicteric, conjunctiva clear. ENT: Ears normal, oropharynx clear without exudates, moist mucous membranes. NECK: Trachea midline, full range of motion, supple. LUNGS: Breath sounds equal, clear to auscultation bilaterally, no wheezes, no crackles, no accessory muscle use. HEART: Regular rate and rhythm, S1, S2 positve , ARIAAN 2/6 ABDOMEN: Soft, nontender, nondistended, normoactive bowel sounds, no guarding, no rebound, no hepatosplenomegaly, no masses. EXTREMITIES: 2+ pulses, warm, well-perfused, no edema. left hip Sx NEUROLOGICAL: Cranial nerves II through XII grossly intact. Normal speech, gait not observed. PSYCH: Normal mood, normal affect. SKIN: Warm, dry, normal turgor, no rashes or lesions noted Laboratory Results - last 24 hr 08/12/16 08/12/16 05:50 05:50 WBC 9.5 RBC 2.66 L Hgb 8.2 L Hct 23.8 L MCV 89.7 MCHC 34.3 RDW 15.3 Plt Count 183 MPV 7.6 Neutrophils % 80.2 Lymphocytes % 11.6 D Monocytes % 7.4 Eosinophils % 0.6 D Basophils % 0.2 Sodium 142 Potassium 3.6 Chloride 105 Carbon Dioxide 28 Anion Gap 9 BUN 26 H D Creatinine 0.9 Random Glucose 116 H Calcium 7.5 L Active Medications Generic Name Dose Route Start Last Admin Trade Name Freq PRN Reason Stop Dose Admin Acetaminophen 650 mg 08/11/16 09:56 Tylenol Suppository - [place] Q4H PRN FEVER OR PAIN Docusate Sodium 100 mg 08/11/16 10:00 08/12/16 10:43 Colace - PO 100 mg DAILY WYATT Administration Enoxaparin Sodium 30 mg 08/12/16 09:00 08/12/16 10:43 Lovenox - SQ 30 mg DAILY WYATT Administration Fentanyl 25 mcg 08/11/16 09:56 Sublimaze Injection - IVPUSH 08/14/16 09:39 [id number] PRN PAIN Folic Acid 1 mg 08/11/16 10:00 08/12/16 10:43 Folic Acid - PO 1 mg DAILY WYATT Administration Dextrose/Sodium Chloride 1,000 mls @ 83 mls/hr 08/11/16 09:56 08/12/16 10:49 D5-1/2ns - IV 83 mls/hr ASDIR WYATT Administration Pantoprazole Sodium 100 mls @ 200 mls/hr 08/11/16 10:00 08/12/16 10:49 Protonix 40mg Ivpb (Pre-Docked) IVPB 200 mls/hr DAILY WYATT Administration Ceftriaxone Sodium 50 mls @ 100 mls/hr 08/12/16 10:00 08/12/16 10:42 Rocephin 1gm Ivpb (Pre-Docked) IVPB 100 mls/hr DAILY WYATT Administration Morphine Sulfate 1 mg 08/11/16 09:56 08/12/16 13:08 Morphine Injection - IVPUSH 1 mg Q6H PRN Administration PAIN Valsartan 80 mg 08/11/16 10:00 08/12/16 10:43 Diovan - PO Not Given DAILY [facility] Urine Test Results Urine Color Yellow 08/10/16 20:00 Urine Appearance Cloudy 08/10/16 20:00 Urine pH 5.0 (5.0-8.0) 08/10/16 20:00 Ur Specific [place] 1.019 (1.001-1.035) 08/10/16 20:00 Urine Protein 1+ (NEGATIVE) H 08/10/16 20:00 Urine Glucose (UA) Negative (NEGATIVE) 08/10/16 20:00 Urine Ketones Negative (NEGATIVE) 08/10/16 20:00 Urine Blood 3+ (NEGATIVE) H 08/10/16 20:00 Urine Nitrite Negative (NEGATIVE) 08/10/16 20:00 Urine Bilirubin Negative (NEGATIVE) 08/10/16 20:00 Ur Leukocyte Esterase 3+ (NEGATIVE) H 08/10/16 20:00 Urine RBC 50 /hpf (0-3) 08/10/16 20:00 Urine WBC 97 /hpf (3-5) 08/10/16 20:00 Ur Epithelial Cells Rare /hpf (FEW) 08/10/16 20:00 Urine Bacteria Rare /hpf (NONE SEEN) 08/10/16 20:00 Urine Mucus Rare 08/10/16 20:00 ASSESSMENT/PLAN: 86 y/o lady with h/o HTN, HL , recent admission with rhabdo , who presented with Left hip Fx post mechanical fall. # POD # 1 s/p Left intertrochanteric Fx , s/p left IM gamma nail # Acute Mechanical fall s/p left hip fx s/p surgical fixation , given hilary- op abx cefazolin x 24 hr , lovenox for DVT px . duration as per Ortho # Fever : Due to UTI on IV antibiotic Rocephin if urine cx is neg. then dc IV antibiotic # AMS : likely metabolic encephalopathy /acute delirium due to pain, new environment and Fx . CT head Neg . monitor # H/o HTN : cont valsartan ,if BP remains elevated then we can resume Norvasc # s/p Acute hypernatremia due to dehydration , resolved . # acute blood loss anemia . due to fx .s/p 2 units of RBC DVT px : lovenox Visit type - Emergency Visit Emergency Visit: Yes ED Registration Date: 08/08/16 Care time: The patient presented to the Emergency Department on the above date and was hospitalized for further evaluation of their emergent condition. - New Patient This patient is new to me today: Yes Date on this admission: 08/12/16 - Critical Care Critical Care patient: No - Discharge Referral Referred to [facility] Med P.C.: No
[2016-08-12] MEDS: ACETAMINOPHEN 650 MG SUPP.RECT PR PRN (21:13)
[2016-08-13 08:00] LABS: MCH 30.4 pg (25.7-33.7); MCHC 33.7 g/dl (32.0-36.0); MEAN CELL VOLUME 90.3 fl (80-96); MEAN PLT VOLUME 7.2 fl (7.5-11.1); PLATELET COUNT 211 K/MM3 (134-434); RDW 15.2 % (11.6-15.6); WHITE BLOOD COUNT 9.4 K/mm3 (4.0-10.0)
[2016-08-13] MEDS: VALSARTAN 80 MG TABLET (UD) PO SCH (09:06)
[2016-08-13] MEDS: ENOXAPARIN NA (PORCINE) 30 MG/0.3 ML DISP.SYRIN SQ SCH (09:06)
[2016-08-13] MEDS: FOLIC ACID 1 MG TABLET (FP) PO SCH (09:06)
[2016-08-13] MEDS: DOCUSATE SODIUM 100 MG CAPSULE (FP) PO SCH (09:06)
[2016-08-13] MEDS: PANTOPRAZOLE SODIUM 100 ML IVPB SCH (09:06)
[2016-08-13] MEDS: DEXTROSE 5%-0.45% SALINE 1,000 ML IV SCH ×2 (10:00→15:34)
[2016-08-13] MEDS: CEFTRIAXONE 50 ML IVPB SCH (10:13)
--- NOTE | 2016-08-13 10:17 | PN ---
Progress Note (short form) - Note Progress Note: Patient is lying in bed but confused Temperature 100.1 F H 08/13/16 06:00 Pulse Rate 86 08/13/16 06:00 Respiratory Rate 18 08/13/16 06:00 Blood Pressure 134/59 08/13/16 06:00 O2 Sat by Pulse Oximetry (%) 94 L 08/12/16 21:00 GENERAL: The patient is awake, alert, and fully oriented, in no acute distress. HEAD: Normal with no signs of trauma. EYES: PERRL, extraocular movements intact, sclera anicteric, conjunctiva clear. ENT: Ears normal, oropharynx clear without exudates, moist mucous membranes. NECK: Trachea midline, full range of motion, supple. LUNGS: Breath sounds equal, clear to auscultation bilaterally, no wheezes, no crackles, no accessory muscle use. HEART: Regular rate and rhythm, S1, S2 positve , ARIANA 2/6 ABDOMEN: Soft, nontender, nondistended, normoactive bowel sounds, no guarding, no rebound, no hepatosplenomegaly, no masses. EXTREMITIES: 2+ pulses, warm, well-perfused, no edema. left hip Sx NEUROLOGICAL: Cranial nerves II through XII grossly intact. Normal speech, gait not observed. PSYCH: Normal mood, normal affect. SKIN: Warm, dry, normal turgor, no rashes or lesions noted CBCD WBC 9.4 K/mm3 (4.0-10.0) 08/13/16 07:10 RBC 2.47 M/mm3 (3.60-5.2) L 08/13/16 07:10 Hgb 7.5 GM/dL (10.7-15.3) L 08/13/16 07:10 Hct 22.3 % (32.4-45.2) L 08/13/16 07:10 MCV 90.3 fl (80-96) 08/13/16 07:10 MCHC 33.7 g/dl (32.0-36.0) 08/13/16 07:10 RDW 15.2 % (11.6-15.6) 08/13/16 07:10 Plt Count 211 K/MM3 (134-434) 08/13/16 07:10 MPV 7.2 fl (7.5-11.1) L 08/13/16 07:10 CMP Sodium 142 mmol/L (136-145) 08/12/16 05:50 Potassium 3.6 mmol/L (3.5-5.1) 08/12/16 05:50 Chloride 105 mmol/L (98-107) 08/12/16 05:50 Carbon Dioxide 28 mmol/L (21-32) 08/12/16 05:50 Anion Gap 9 (8-16) 08/12/16 05:50 BUN 26 mg/dL (7-18) H D 08/12/16 05:50 Creatinine 0.9 mg/dL (0.55-1.02) 08/12/16 05:50 Creat Clearance w eGFR 59.51 (>60) 08/08/16 16:15 Random Glucose 116 mg/dL (74-106) H 08/12/16 05:50 Calcium 7.5 mg/dL (8.5-10.1) L 08/12/16 05:50 Total Bilirubin 0.2 mg/dL (0.2-1.0) D 08/08/16 16:15 AST 21 U/L (15-37) D 08/08/16 16:15 ALT 14 U/L (12-78) D 08/08/16 16:15 Alkaline Phosphatase 54 U/L (45-117) D 08/08/16 16:15 Total Protein 5.7 g/dl (6.4-8.2) L 08/08/16 16:15 Albumin 3.1 g/dl (3.4-5.0) L 08/08/16 16:15 CARDIAC ENZYMES Creatine Kinase 688 IU/L (26-192) H D 08/10/16 05:28 Troponin I < 0.02 ng/ml (0.00-0.05) 08/09/16 06:40 Current Medications Generic Name Dose Route Start Last Admin Trade Name Freq PRN Reason Stop Dose Admin Acetaminophen 650 mg 08/11/16 09:56 08/12/16 21:13 Tylenol Suppository - [place] 650 mg Q4H PRN Administration FEVER OR PAIN Docusate Sodium 100 mg 08/11/16 10:00 08/13/16 09:06 Colace - PO 100 mg DAILY WYATT Administration Enoxaparin Sodium 30 mg 08/12/16 09:00 08/13/16 09:06 Lovenox - SQ 30 mg DAILY WYATT Administration Fentanyl 25 mcg 08/11/16 09:56 Sublimaze Injection - IVPUSH 08/14/16 09:39 [id number] PRN PAIN Folic Acid 1 mg 08/11/16 10:00 08/13/16 09:06 Folic Acid - PO 1 mg DAILY WYATT Administration Dextrose/Sodium Chloride 1,000 mls @ 83 mls/hr 08/11/16 09:56 08/12/16 10:49 D5-1/2ns - IV 83 mls/hr ASDIR WYATT Administration Pantoprazole Sodium 100 mls @ 200 mls/hr 08/11/16 10:00 08/13/16 09:06 Protonix 40mg Ivpb (Pre-Docked) IVPB 200 mls/hr DAILY WYATT Administration Ceftriaxone Sodium 50 mls @ 100 mls/hr 08/12/16 10:00 08/13/16 10:13 Rocephin 1gm Ivpb (Pre-Docked) IVPB 100 mls/hr DAILY WYATT Administration Morphine Sulfate 1 mg 08/11/16 09:56 08/12/16 21:14 Morphine Injection - IVPUSH 1 mg Q6H PRN Administration PAIN Valsartan 80 mg 08/11/16 10:00 08/13/16 09:06 Diovan - PO Not Given DAILY [facility] Medication Instructions Recorded Aspirin [ASA -] 81 mg PO DAILY #30 tab.chew 05/31/16 Folic Acid - 1 mg PO DAILY #0 05/31/16 Levofloxacin [Levaquin -] 250 mg PO DAILY #3 tablet 05/31/16 Amlodipine Besylate [Norvasc -] 10 mg PO DAILY 08/09/16 Valsartan [Diovan] 160 mg PO DAILY 08/09/16 A/P: 86 y/o lady with h/o HTN, HL , recent admission with rhabdo , who presented with Left hip Fx post mechanical fall. # POD # 2 s/p Left intertrochanteric Fx , s/p left IM gamma nail # Acute Mechanical fall s/p left hip fx s/p surgical fixation , given hilary- op abx cefazolin x 24 hr , # Fever : Due to UTI on IV antibiotic Rocephin if urine cx is neg. then dc IV antibiotic # AMS : likely metabolic encephalopathy /acute delirium due to pain, new environment and Fx . CT head Neg . monitor # H/o HTN : cont valsartan ,if BP remains elevated then we can resume Norvasc # s/p Acute hypernatremia due to dehydration , resolved . # acute blood loss anemia . due to fx .s/p 2 units of RBC DVt Px: lovenox 30mg rehab Visit type - Emergency Visit Emergency Visit: Yes ED Registration Date: 08/08/16 Care time: The patient presented to the Emergency Department on the above date and was hospitalized for further evaluation of their emergent condition. - New Patient This patient is new to me today: No - Critical Care Critical Care patient: No
--- NOTE | 2016-08-13 11:18 | PN ---
Progress Note (short form) - Note Progress Note: AVSS COMFORTABLE BANDAGES CLEAN AND DRY CALF SOFT AND NT NVI HCT: 23 IMP: DOING WELL ORTHOPEDICALLY PLAN: OOB, PT, TRANSFUSE 1 UNIT PRBCS
[2016-08-13] MEDS: ACETAMINOPHEN 650 MG SUPP.RECT PR PRN (23:26)
[2016-08-14] MEDS: ENOXAPARIN NA (PORCINE) 30 MG/0.3 ML DISP.SYRIN SQ SCH ×2 (09:41→19:30)
[2016-08-14] MEDS: CEFTRIAXONE 50 ML IVPB SCH (09:41)
[2016-08-14] MEDS: FOLIC ACID 1 MG TABLET (FP) PO SCH (09:42)
[2016-08-14] MEDS: DOCUSATE SODIUM 100 MG CAPSULE (FP) PO SCH (09:42)
[2016-08-14] MEDS: VALSARTAN 80 MG TABLET (UD) PO SCH (09:42)
[2016-08-14] MEDS: PANTOPRAZOLE 40 MG TABLET (FP) PO SCH (10:03)
[2016-08-14 11:17] LABS: MCH 30.5 pg (25.7-33.7); MCHC 33.3 g/dl (32.0-36.0); MEAN CELL VOLUME 91.6 fl (80-96); MEAN PLT VOLUME 7.2 fl (7.5-11.1); PLATELET COUNT 236 K/MM3 (134-434); RDW 15.4 % (11.6-15.6)
[2016-08-14 11:49] LABS: CALCIUM 7.7 mg/dL (8.5-10.1); CREATININE 0.7 mg/dL (0.55-1.02)
--- NOTE | 2016-08-14 11:49 | PN ---
Progress Note (short form) - Note Progress Note: CONDITION UNCHANGED PLAN: OOB, PT, DC PLANNING
--- NOTE | 2016-08-14 14:47 | PN ---
Physical Exam: SUBJECTIVE: Patient seen and examined OBJECTIVE: Vital Signs Period Temp Pulse Resp BP Sys/Weiss Pulse Ox Last 24 Hr 97.0 F-98 F 78-84 18-20 105-139/44-66 95-97 GENERAL: The patient is awake oriented to name, her date, unable to tell place and year in no acute distress. HEAD: Normal with no signs of trauma. EYES: PERRL, extraocular movements intact, sclera anicteric, conjunctiva clear. ENT: Ears normal, nares patent, oropharynx clear without exudates, LUNGS: Breath sounds equal, clear to auscultation bilaterally, no wheezes, no crackles, HEART: s1s2 normal ABDOMEN: Soft, nontender, nondistended, normoactive bowel sounds, no guarding, EXTREMITIES: swelling decreased on left leg, pulses present, sensation to touch intact SKIN: Warm, dry, normal turgor, no rashes or lesions noted Laboratory Results - last 24 hr 08/14/16 08/14/16 11:13 11:13 WBC 9.0 RBC 2.47 L Hgb 7.5 L Hct 22.6 L MCV 91.6 MCHC 33.3 RDW 15.4 Plt Count 236 MPV 7.2 L Sodium 140 Potassium 3.5 Chloride 106 Carbon Dioxide 26 Anion Gap 8 BUN 34 H D Creatinine 0.7 D Random Glucose 138 H Calcium 7.7 L Active Medications Generic Name Dose Route Start Last Admin Trade Name Freq PRN Reason Stop Dose Admin Acetaminophen 650 mg 08/11/16 09:56 08/13/16 23:26 Tylenol Suppository - [place] 650 mg Q4H PRN Administration FEVER OR PAIN Docusate Sodium 100 mg 08/11/16 10:00 08/14/16 09:42 Colace - PO 100 mg DAILY WYATT Administration Enoxaparin Sodium 40 mg 08/15/16 10:00 Lovenox - SQ DAILY WYATT Folic Acid 1 mg 08/11/16 10:08/14/16 09:42 Folic Acid - PO 1 mg DAILY WYATT Administration Ceftriaxone Sodium 50 mls @ 100 mls/hr 08/12/16 10:00 08/14/16 09:41 Rocephin 1gm Ivpb (Pre-Docked) IVPB 100 mls/hr DAILY WYATT Administration Pantoprazole Sodium 40 mg 08/14/16 10:00 08/14/16 10:03 Protonix - PO 40 mg DAILY WYATT Administration Valsartan 80 mg 08/11/16 10:00 08/14/16 09:42 Diovan - PO 80 mg DAILY WYATT Administration ASSESSMENT/PLAN: 86 y/o lady with h/o HTN, HL , recent admission with rhabdo , who presented with Left hip Fx post mechanical fall. # Left intertrochanteric Fx , post op day 3 s/p left IM gamma nail continue with physiotherapy ortho consult appreciated: OOB, PT, DC PLANNING for pain on tylenol 650 mg q4h prn UTI u culture : e coli will continue with ceftrixaone, will give antibiotics for 7 days, Anemia: probably due to blood loss post fracture hb 7.5 received 2 units of blood will transfuse one more unit of blood. hypernatremia resolved AMS: could be due to electrolyte imbalnace, uti or sever pain resolved fluid : Iv stopped, patient accepting orally electrolyte: follow in am nutrition: regular diet dvt pro ; lovenox 40mg gi pro : protonix 40mg po daily Dispo : admit in med surg Visit type - Emergency Visit Emergency Visit: Yes ED Registration Date: 08/08/16 Care time: The patient presented to the Emergency Department on the above date and was hospitalized for further evaluation of their emergent condition. - New Patient This patient is new to me today: No - Critical Care Critical Care patient: No
--- NOTE | 2016-08-14 16:59 | PN ---
Teaching Attending Note Name of Resident: Nickolas Lai ATTENDING PHYSICIAN STATEMENT I saw and evaluated the patient. I reviewed the resident's note and discussed the case with the resident. I agree with the resident's findings and plan as documented. SUBJECTIVE: no fever or chills, feels better , no pain in hip OBJECTIVE: no fever or chills, feels better , denies pain OBJECTIVE: NAD , knows she is in hospital. knows her age and her address MMM CV: RRR, no MRG Lungs : CTAB no JVD Ext: TTP and edema over L hip, raquel lateral aspect. DP 2+ b/l. warm skin over feet , able to move ankle and toes . no bruise over L hip , nl temperature compared to other side . surgical dressing on L hip ASSESSMENT AND PLAN: 86 y/o lady with h/o HTN, HL , recent admission with Rhabdo , who presented after a mechanical fall. no head trauma 1- Mechanical fall with resultant L intertrochanteric Fx . - s/p surgical fixation - lovenox for DVT px . duration per Ortho , probably 4 weeks 2- UTI : cx with granados sensitive E coli . Cont CTX for a total of 7 days 3- AMS : likely metabolic encephalopathy /acute delirium: much improved 4- H/o HTN : cont valsartan 5- Hypernatremia due to dehydration . resolved . 6- Acute blood loss anemia. due to fx .s/p 2 units of RBC . will transfuse one unit today 7- DVT px : lovenox dispo : needs rehab . possibly tomorrow
[2016-08-15 09:05] LABS: BASOPHIL 0.8 % (0-2.0); EOSINOPHIL 2.4 % (0-4.5); MCH 29.9 pg (25.7-33.7); MCHC 33.4 g/dl (32.0-36.0); MEAN CELL VOLUME 89.6 fl (80-96); MEAN PLT VOLUME 7.3 fl (7.5-11.1); NEUTROPHILS 72.6 % (42.8-82.8); PLATELET COUNT 266 K/MM3 (134-434); RDW 15.5 % (11.6-15.6); WHITE BLOOD COUNT 9.7 K/mm3 (4.0-10.0)
[2016-08-15 09:24] LABS: CALCIUM 8.1 mg/dL (8.5-10.1); CREATININE 0.7 mg/dL (0.55-1.02)
[2016-08-15] MEDS ORDERED: PT OWN MED DRAWER 7, Y5N ONE (09:51)
[2016-08-15] MEDS ORDERED: ENOXAPARIN NA (PORCINE) 40 MG/0.4 ML DISP.SYRIN SQ SCH (10:00)
[2016-08-15] MEDS: DOCUSATE SODIUM 100 MG CAPSULE (FP) PO SCH (10:35)
[2016-08-15] MEDS: PANTOPRAZOLE 40 MG TABLET (FP) PO SCH (10:35)
[2016-08-15] MEDS: VALSARTAN 80 MG TABLET (UD) PO SCH (10:35)
[2016-08-15] MEDS: FOLIC ACID 1 MG TABLET (FP) PO SCH (10:35)
[2016-08-15] MEDS: CEFTRIAXONE 50 ML IVPB SCH (10:35)
[2016-08-15 15:10] VITALS: BP 140/56; PULSE 80; TEMP 98
--- NOTE | 2016-08-15 17:32 | DS ---
Physical Exam: SUBJECTIVE: Patient seen and examined OBJECTIVE: Vital Signs Period Temp Pulse Resp BP Sys/Weiss Pulse Ox Last 24 Hr 97.7 F-99.7 F 74-81 18-20 117-148/55-87 95-97 PHYSICAL EXAM GENERAL: The patient is awake oriented to name, her date, unable to tell place and year in no acute distress. HEAD: Normal with no signs of trauma. EYES: PERRL, extraocular movements intact, sclera anicteric, conjunctiva clear. ENT: Ears normal, nares patent, oropharynx clear without exudates, LUNGS: Breath sounds equal, clear to auscultation bilaterally, no wheezes, no crackles, HEART: s1s2 normal ABDOMEN: Soft, nontender, nondistended, normoactive bowel sounds, no guarding, EXTREMITIES: swelling decreased on left leg, pulses present, sensation to touch intact SKIN: Warm, dry, normal turgor, no rashes or lesions noted Laboratory Results - last 24 hr 08/14/16 08/15/16 08/15/16 17:45 08:35 08:35 WBC 9.7 RBC 3.04 L D Hgb 9.1 L D Hct 27.2 L D MCV 89.6 MCHC 33.4 RDW 15.5 Plt Count 266 MPV 7.3 L Neutrophils % 72.6 Lymphocytes % 17.0 D Monocytes % 7.2 Eosinophils % 2.4 D Basophils % 0.8 D Sodium 142 Potassium 4.3 D Chloride 107 Carbon Dioxide 26 Anion Gap 9 BUN 33 H Creatinine 0.7 Random Glucose 123 H Calcium 8.1 L Blood Type O POSITIVE Antibody Screen Negative Crossmatch See Detail CBCD WBC 9.7 K/mm3 (4.0-10.0) 08/15/16 08:35 RBC 3.04 M/mm3 (3.60-5.2) L D 08/15/16 08:35 Hgb 9.1 GM/dL (10.7-15.3) L D 08/15/16 08:35 Hct 27.2 % (32.4-45.2) L D 08/15/16 08:35 MCV 89.6 fl (80-96) 08/15/16 08:35 MCHC 33.4 g/dl (32.0-36.0) 08/15/16 08:35 RDW 15.5 % (11.6-15.6) 08/15/16 08:35 Plt Count 266 K/MM3 (134-434) 08/15/16 08:35 MPV 7.3 fl (7.5-11.1) L 08/15/16 08:35 CMP Sodium 142 mmol/L (136-145) 08/15/16 08:35 Potassium 4.3 mmol/L (3.5-5.1) D 08/15/16 08:35 Chloride 107 mmol/L (98-107) 08/15/16 08:35 Carbon Dioxide 26 mmol/L (21-32) 08/15/16 08:35 Anion Gap 9 (8-16) 08/15/16 08:35 BUN 33 mg/dL (7-18) H 08/15/16 08:35 Creatinine 0.7 mg/dL (0.55-1.02) 08/15/16 08:35 Creat Clearance w eGFR 59.51 (>60) 08/08/16 16:15 Random Glucose 123 mg/dL (74-106) H 08/15/16 08:35 Calcium 8.1 mg/dL (8.5-10.1) L 08/15/16 08:35 Total Bilirubin 0.2 mg/dL (0.2-1.0) D 08/08/16 16:15 AST 21 U/L (15-37) D 08/08/16 16:15 ALT 14 U/L (12-78) D 08/08/16 16:15 Alkaline Phosphatase 54 U/L (45-117) D 08/08/16 16:15 Total Protein 5.7 g/dl (6.4-8.2) L 08/08/16 16:15 Albumin 3.1 g/dl (3.4-5.0) L 08/08/16 16:15 CARDIAC ENZYMES Creatine Kinase 688 IU/L (26-192) H D 08/10/16 05:28 Troponin I < 0.02 ng/ml (0.00-0.05) 08/09/16 06:40 CT head No evidence of acute intracranial hemorrhage, edema, midline shift, mass effect, or skull fracture. No CT evidence of acute territorial infarction. Xray left hip: femoral intertrochontric fracture with varus deformity HOSPITAL COURSE: he pt is a 86 year old female with a significant PMH of HTN, HDL, s/p fall in May 2016, presents with the pain in her left hip. The pt slipped over when preparing tea at home. She fell on her back with extended arms. Afterwards she called a neighbour for help. She denies LOC, feeling dizzy , lightheaded before or after the accident. She denies chest pain, SOB, cough, dysuria, urgency, frequency, N/V, diarrhea, constipation, fever, chills. examination and investigations were done patient was diagnosed with left intertrochontric farctur, anemia, uti, hypernatremia. For fracture orthopedician dr leiva was consulted and IM gamma nail was inserted. For anemia which was due to acute blood loss due to fracture patient was given 3 units of blood and Hgb increased from 6.7 to 9.1. For uti, culture came out positive for e coli patient recieved ceftriaxone Iv for 5 days and discharged on keflex 500mg bid for 2 days. for hypernatremia patient was give iV fluid and it recovered. patient also developed altered mental status which was thought could be due to electrolyte imbalance, uti of severe pain AMS improved slowly after IV flui d, antibiotic and surgery. Now Patient is made to stand and patient is discharged in stable condition to rehab. Advice Follow up with your pcp Follow up with orthopedic surgeon Dr mahendra hauser physicial therapy Patient need to out of bed, and move with help of physical therapy Take lovenox for 4 week to avoid dvt Take oral antibiotics keflex 500mg bid for 2 more days take fall precautions take valsartan 80mg daily we had stopped your amlodipine 5mg If develop nausea, vomiting,chest pain shortness of breath, contact doctor or come to hospital. Date of Admission:08/08/16 Date of Discharge: 08/15/16 Minutes to complete discharge: 45 Discharge Summary Reason For Visit: LT HIP FRACTURE Condition: Stable - Instructions Diet, Activity, Other Instructions: Follow up with your pcp Follow up with orthopedic surgeon Dr mahendra hauser physicial therapy Patient need to out of bed, and move with help of physical therapy Take lovenox for 4 week to avoid dvt Take oral antibiotics keflex 500mg bid for 2 more days take fall precautions take valsartan 80mg daily we had stopped your amlodipine 5mg If develop nausea, vomiting,chest pain shortness of breath, contact doctor or come to hospital. Referrals: Ivelisse Cr [Primary Care Provider] - Leroy Leiva MD [Staff Physician] - 1 Week Disposition: [facility] - Home Medications Comprehensive Discharge Medication List: Ambulatory Orders Aspirin [ASA -] 81 mg PO DAILY #30 tab.chew 05/31/16 Folic Acid - 1 mg PO DAILY #0 05/31/16 Cephalexin Monohydrate [Keflex -] 500 mg PO BID #4 capsule 08/15/16 Docusate Sodium [Colace -] 100 mg PO DAILY capsule 08/15/16 Enoxaparin [Lovenox -] 40 mg SQ DAILY #28 disp.syrin 08/15/16 Pantoprazole Sodium [Protonix -] 40 mg PO DAILY tablet.ec 08/15/16 Valsartan [Diovan] 80 mg PO DAILY tablet 08/15/16 This patient is new to me today: No Emergency Visit: Yes ED Registration Date: 08/08/16 Care time: The patient presented to the Emergency Department on the above date and was hospitalized for further evaluation of their emergent condition. Critical Care patient: No - Discharge Referral Referred to [facility] Med P.C.: No
--- NOTE | 2016-08-15 18:40 | PN ---
Teaching Attending Note Name of Resident: Nickolas Lai ATTENDING PHYSICIAN STATEMENT I saw and evaluated the patient. I reviewed the resident's note and discussed the case with the resident. I agree with the resident's findings and plan as documented. SUBJECTIVE: no fever or chills, no abd pain , no hip pain OBJECTIVE: NAD , knows she is in hospital. knows her age and her address MMM CV: RRR, no MRG Lungs : CTAB no JVD Ext: TTP and edema over L hip, raquel lateral aspect. DP 2+ b/l. warm skin over feet , able to move ankle and toes . no bruise over L hip , nl temperature compared to other side . surgical dressing on L hip ASSESSMENT AND PLAN: 86 y/o lady with h/o HTN, HL , recent admission with Rhabdo , who presented after a mechanical fall. no head trauma 1- Mechanical fall with resultant L intertrochanteric Fx . - s/p surgical fixation - lovenox for DVT px . 4 weeks 2- UTI : cx with granados sensitive E coli . 2 more days of keflex for complicated UTI ( totalof 7 ) 3- AMS : likely metabolic encephalopathy /acute delirium: much improved 4- H/o HTN : cont valsartan will not resume norvasc at dc 5- Hypernatremia due to dehydration . resolved . 6- Acute blood loss anemia. due to fx .s/p 3 units of RBC 7- DVT px : lovenox dc to rehab today
== END 2016-08-15 16:05 | DRG 480 ==
LOC: JER 15:01 → JERBED 19:41 → J8W 20:52 → J6S 08-11 12:46
PROVIDERS: ADMIT Internal Medicine; ATTEND Internal Medicine
PROC: 30233N1 Transfusion of Nonautologous Red Blood Cells into Peripheral Vein, Percutaneous Approach (ICD-10-PCS; 2016-08-09)
PROC: 0QS704Z Reposition Left Upper Femur with Internal Fixation Device, Open Approach (ICD-10-PCS; principal; 2016-08-11 09:30)
DX: S72.145A Nondisplaced intertrochanteric fracture of left femur, initial encounter for closed fracture (principal); G93.41 Metabolic encephalopathy; E87.0 Hyperosmolality and hypernatremia; D62 Acute posthemorrhagic anemia; N39.0 Urinary tract infection, site not specified; E78.00 Pure hypercholesterolemia, unspecified; E78.5 Hyperlipidemia, unspecified; I10 Essential (primary) hypertension; R41.0 Disorientation, unspecified; E86.0 Dehydration; B96.29 Other Escherichia coli [E. coli] as the cause of diseases classified elsewhere; W01.0XXA Fall on same level from slipping, tripping and stumbling without subsequent striking against object, initial encounter; Y93.89 Activity, other specified; Y92.098 Other place in other non-institutional residence as the place of occurrence of the external cause
CPT/HCPCS: 36415; 36430; 70450-TC; 71010-TC; 73523-TC; 73552-TC-LT; 76000-TC; 80048; 80053; 81003; 81015; 82550; 82553; 82728; 83540; 83550; 83735; 84100; 84484; 85025; 85027; 85610; 85730; 86850; 86900; 86901; 86922; 87040; 87086; 87186; 93005; 93010; 93970-TC; 94760; 97001-GP; 97116-GP; 99283-25; P9058